=== PATIENT | female | born 1970 | race African-American/Black ===

== ENCOUNTER 2021-04-22 17:17 | Emergency (ER) | payer OTHER ==
[~2021-04-22] VITALS: Ht 172.7 cm; Wt 70.0 kg
[2021-04-22 17:20] VITALS: BP 160/93
--- NOTE | 2021-04-22 17:42 | PHYS DOC ---
Past History Additional Past Medical Histor: BACK PAIN (KAY PERAZA APRN) Past Surgical History: No Surgical History (KAY PERAZA APRN) Alcohol Use: None (KAY PERAZA APRN) General Adult EDM: Chief Complaint: BACK PAIN OR INJURY HPI: HPI: Patient is a 50-year-old female who presents to the ER for low back pain. Patient states she has a history of chronic low back pain but it is always been intermittent and improved with naproxen and Tylenol but since Wednesday she has been experiencing worsening of her back pain. She denies any injury or heavy lifting. The pain does not radiate. She rates it 6 out of 10. She describes it as a tightness. She has been using naproxen, Tylenol, and BenGay strips. Patient denies any saddle anesthesias, numbness or tingling in her extremities or loss of bowel or bladder. (KAY PERAZA APRN) Review of Systems: Review of Systems: 14 body systems of the review of systems have been reviewed. See HPI for pertinent positive and negative responses, otherwise all other systems are ne gative, nonpertinent or noncontributory (KAY PERAZA APRN) Allergies: Allergies: Allergies Coded Allergies Type Severity Reaction Last Updated Verified No Known Drug Allergies 04/22/21 No (KAY PERAZA APRN) Physical Exam: PE: Constitutional: Well developed, well nourished, no acute distress, non-toxic appearance. [] HENT: Normocephalic, atraumatic Eyes: PERRL, EOMI, conjunctiva normal, no discharge. [] Neck: Normal range of motion, no bony cervical spinal tenderness, supple, no stridor. [] Cardiovascular: Normal peripheral perfusion Lungs & Thorax: Normal work of breathing, no tachypnea Abdomen: Bowel sounds normal, soft, no tenderness, no masses, no pulsatile masses. [] Skin: Warm, dry, no erythema, no rash. [] Back: No bony spinal tenderness with palpation, positive r. straight leg raise Extremities: No tenderness, no cyanosis, no clubbing, ROM intact, no edema. [] Neurologic: Alert and oriented X 3, normal motor function, normal sensory function, no focal deficits noted. [] Psychologic: Affect normal, judgement normal, mood normal. [] (KAY PERAZA APRN) EKG: EKG: [] (KAY PERAZA APRN) Radiology/Procedures: Radiology/Procedures: PROCEDURE: CT LUMBAR SPINE WO CONTRAST Examination: CT lumbar spine without contrast HISTORY: History of low back pain COMPARISON: None available TECHNIQUE: Axial CT images of the lumbar spine were performed without contrast. Coronal and sagittal reformats are performed Exposure: One or more of the following individualized dose reduction techniques were utilized for this examination: 1. Automated exposure control 2. Adjustment of the mA and/or kV according to patient size 3. Use of iterative reconstruction technique FINDINGS: The lumbar vertebral body heights are maintained. Mild disc bulge identified at L3-L4, L4-L5, L5-S1 vertebral level causing mild spinal canal stenosis. There is no acute fracture or dislocation identified. IMPRESSION: Mild disc bulge identified at L3-L4, L4-L5, L5-S1 vertebral level causing mild spinal canal stenosis. If pain persists recommend MRI for further evaluation. Electronically signed by: Abraham Sanches MD (04/22/2021 6:03 PM) [id number] DICTATED AND SIGNED BY: ABRAHAM SANCHES MD DATE: 04/22/21 1756 CC: KAY PERAZA APRN; PCP,NO ~MTH0 0[] (KAY PERAZA APRN) Heart Score: C/O Chest Pain: No Risk Factors: Risk Factors: DM, Current or recent (<one month) smoker, HTN, HLP, family history of CAD, obesity. Risk Scores: Score 0 - 3: 2.5% MACE over next 6 weeks - Discharge Home Score 4 - 6: 20.3% MACE over next 6 weeks - Admit for Clinical Observation Score 7 - 10: 72.7% MACE over next 6 weeks - Early Invasive Strategies (KAY PERAZA APRN) Course & Med Decision Making: Course & Med Decision Making Pertinent Labs and Imaging studies reviewed. (See chart for details) [] Patient is a 50-year-old female being seen in the ER for lumbar back pain. A CT scan was performed of her lumbar spine that showed disc bulging at L3 through S1. Patient treated with anti-inflammatory shot, patient declined the muscle relaxer shot because she is driving was afraid that it would cause too much sedation. Patient will be discharged home with a prescription for Flexeril. She will be advised to take anti-inflammatory medications. Patient requesting steroid taper becuase it helped in the past with her back pain. I discussed with patient all findings and diagnostic testing as well as the need to follow- up with PCP for further evaluation and treatment or return to the ER if any new or worsening symptoms. Strict return precautions were also discussed at length. Patient voiced understanding and agreement with the plan. Patient is hemodynamically stable at the time of disposition. (KAY PERAZA APRN) Course & Med Decision Making I was the Attending physician on the above date of service of this patient. This patient was evaluated, examined, treated, and dispositioned from the emergency department by the mid-level practitioner. Although I was working at the time , no assistance was requested. Electronically signed, Evan Michaud DO (EVAN MICHAUD DO) Linda Disclaimer: Linda Disclaimer: This electronic medical record was generated, in whole or in part, using a voice recognition dictation system. (KAY PERAZA APRN) Departure Departure: Impression: Primary Impression: Back pain Qualified Codes: M54.5 - Low back pain Disposition: HOME / SELF CARE / HOMELESS Condition: GOOD Referrals: PCP,NO (PCP) Patient Instructions: Back Pain, Adult Additional Instructions: You were seen in the ER for low back pain. A CT scan was performed of your lumbar spine and it showed disc bulging at L5 through S1, if you continue to have pain you would benefit from an MRI. You were treated in the ER with an anti-inflammatory. Continue to take your naproxen and Tylenol at home. You are being discharged home with a muscle relaxer. Please take this as directed. Please caution taking this as it may cause sedation, do not take any need to be alert and do not take with alcohol. Follow-up with your primary care provider as soon as possible regarding your ER visit. If you develop worsening of your back pain, numbness or tingling in your groin or down your extremities, loss of bowel or bladder or any new or worsening concerns please return to the ER. EMERGENCY DEPARTMENT GENERAL DISCHARGE INSTRUCTIONS Thank you for coming to [facility] (ED) today and trusting us with you care. We trust that you had a positivie experience in our Emergency Department. If you wish to speak to the department management, you may call the director at [phone]. YOUR FOLLOW UP INSTRUCTIONS ARE FOLLOWS: 1. Do you have a private Doctor? If you do not have a private doctor, please ask for a resource list of physicians or clinics that may be able to assist you with follow up care. 2. The Emergency Physician has interpreted your x-rays. The X-Ray specialist will also review them. If there is a change in the findings, you will be notified in 48 hours when at all possible. 3. A lab test or culture has been done, your results will be reviewed and you will be notified if you need a change in treatment. ADDITIONAL INSTRUCTIONS AND INFORMATION: 1. Your care today has been supervised by a physician who is specially trained in emergency care. Many problems require more than one evaluation for a complete diagnosis and treatment. We recommend that you schedule your follow up appointment as recommended to ensure complete treatment of you illness or injury. If you are unable to obtain follow up care and continue to have a problem, or if your condition worsens, we recommend that you return to the ED. 2. We are not able to safely determine your condition over the phone nor are we able to give sound medical advice over the phone. For these safety reasons, if you call for medical advice we will ask you to come to the ED for further evaluation. 3. If you have any questions regarding these discharge instructions please call the ED at [phone]. SAFETY INFORMATION: In the interest of safety, wellness, and injury prevention; we encourage you to wear your sealbelt, if you smoke; quite smoking, and we encourage family to use a pr otective helmet for bicycling and other sporting events that present an increased risk for head injury. IF YOUR SYMPTOMS WORSEN OR NEW SYMPTOMS DEVELOP, OR YOU HAVE CONCERNS ABOUT YOUR CONDITION; OR IF YOUR CONDITION WORSENS WHILE YOU ARE WAITING FOR YOUR FOLLOW UP APPOINTMENT; EITHER CONTACT YOUR PRIMARY CARE DOCTOR, THE PHYSICIAN WHOSE NAME AND NUMBER YOU WERE GIVEN, OR RETURN TO THE ED IMMEDIATELY. Scripts Meloxicam (MELOXICAM) 7.5 Mg Tablet 1 TAB PO DAILY for back pain for 10 Days, #10 TAB 0 Refills Prov: KAY PERAZA APRN 04/22/21 Cyclobenzaprine Hcl (CYCLOBENZAPRINE HCL) 5 Mg Tablet 1 TAB PO TID for muscle spasm for 5 Days, #15 TAB 0 Refills Prov: KAY PERAZA APRN 04/22/21 KAY PERAZA APRN Apr 22, 2021 17:42 EVAN MICHAUD DO Apr 23, 2021 06:22
[2021-04-22] MEDS ORDERED: KETOROLAC 60 MG/2 ML VIAL. IM ONE (17:45)
[2021-04-22] MEDS ORDERED: ORPHENADRINE CITRATE 60 MG/2 ML VIAL. IM ONE (17:45)
--- NOTE | 2021-04-22 18:05 | RAD ---
Examination: CT lumbar spine without contrast HISTORY: History of low back pain COMPARISON: None available TECHNIQUE: Axial CT images of the lumbar spine were performed without contrast. Coronal and sagittal reformats are performed Exposure: One or more of the following individualized dose reduction techniques were utilized for thi s examination: 1. Automated exposure control 2. Adjustment of the mA and/or kV according to patient size 3. Use of iterative reconstruction technique FINDINGS: The lumbar vertebral body heights are maintained. Mild disc bulge identified at L3-L4, L4-L5, L5-S1 v ertebral level causing mild spinal canal stenosis. There is no acute fracture or dislocation identifi ed. IMPRESSION: Mild disc bulge identified at L3-L4, L4-L5, L5-S1 vertebral level causing mild spinal canal stenosis. If pain persists recommend MRI for further evaluation. Electronically signed by: Abraham Sanches MD (04/22/2021 6:03 PM) [id number]
[2021-04-22] MEDS ORDERED: CYCL5TAB PO (18:11)
[2021-04-22] MEDS ORDERED: METH4TAB2 PO (18:17)
[2021-04-22] MEDS ORDERED: MELO7.5T29 PO (18:22)
[2021-04-22] MEDS ORDERED: DEXAMETHASONE SOD PHOS 10 MG/ML VIAL. IM ONE (18:30)
== END 2021-04-22 18:34 | disposition home or self-care (01) ==
LOC: ER 17:17
DX: M54.5 Low back pain (principal); G89.29 Other chronic pain
CPT/HCPCS: 72131; 96372; 99285; J1100; J1885